=== PATIENT | female | born 1985 | race Caucasian/White ===

== ENCOUNTER → 2023-05-05 10:15 | Outpatient (BNVA) | payer BC, SELFPAY | PROVIDERS: PCP Nurse Practitioner Family; Visit Provider Nurse Practitioner Family | DX: R53.83 Other fatigue (principal); E78.5 Hyperlipidemia, unspecified; I10 Essential (primary) hypertension; E28.2 Polycystic ovarian syndrome; K51.90 Ulcerative colitis, unspecified, without complications; R60.9 Edema, unspecified; Z98.890 Other specified postprocedural states; Z98.891 History of uterine scar from previous surgery | CPT/HCPCS: 80053; 80061; 84439; 84443; 84481; 85025 ==